=== PATIENT | female | born 1960 | race Caucasian/White ===

== ENCOUNTER 2016-09-08 19:08 | Inpatient (IN) | payer MEDICARE, MEDICAID ==
[~2016-09-08] VITALS: Ht 152.4 cm; Wt 46.6 kg
[~2016-09-08 19:08] MED LIST: AMBIEN 5MG TABLE5 MG PO; AMBIEN10 MG PO; AMITIZA24 MCG PO; ASPIR-LOW81 MG PO; ATIVAN1 MG PO; BRIVIACT75 MG PO; CALCIUM + D 5001 TAB PO; CARBATROL300 MG PO; CARDI-OMEGA1000 MG PO; CEFTIN 250250 MG/TAB PO; CELEXA; CELEXA PO; CEPHALEXIN500 M1 PO; CHANTIX 1MG1 MG PO; CHANTIX START M1 TAB PO; CLINDAGEL 40 ML40 ML TP; CYMBALTA 30MG30 MG PO; DAZIDOX20 MG PO; DESYREL 100MG100 MG PO; DICYCLOMINE HCL10 MG PO; DICYCLOMINE10 MG PO; DILAUDID 2MG TAB2 MG PO; DOXYCYCLINE 10100 MG PO; EFFER-K10 MEQ PO; ELAVIL25 MG PO; ENSURE HIGH PR237 ML PO; FERROUS SU325 MG/TAB PO; FERROUSAL325 MG PO; FLEXERIL 1010 MG/TAB PO; FLEXERIL10 MG PO; GABAPENTIN; GABAPENTIN600 MG PO; GENTLE LAXATIVE10 MG RC; HEPARIN LOCK FLU5 M1 IV; HYDROXYZINE PAM25 MG PO; IBU800 M1 PO; IBUPROFEN400 MG PO; INVANZ INJ1 G/VIAL IV; IPRATROPIUM BROM3 M1 IH; IRON FERROUS S325 MG PO; IRON325 M1 PO; K-DUR20 MEQ PO; K-LOR CON PO; KEPPRA 500MG500 MG PO; KEPPRA1000 MG PO; KEPPRA750 MG PO; KLONOPIN 0.5MG0.5 MG PO; KLOR-CON 1010 MEQ PO; LASIX PO; LASIX20 MG PO; LASIX40 MG PO; LEVBID0.375 MG; LEVSIN0.125 M1 PO; LIDODERM 5% PATC1 EA TD; LINZESS290CAP PO; LUNESTA3 MG PO; MAALOX EXTRA S360 ML PO; MAG-OX 400400 MG PO; MAG-OX 400400 MG/TAB PO; MAGIC MOUTH PO; MAGNESIUM OXIDE PO; MILK OF MA400 MG/51 PO; MIRALAX 17GM PK1 PKT PO; MIRALAX PA17 GM/Dose PO; MOTRIN400 MG PO; MS CONTIN 115 MG/TAB PO; MULTIPLE VITAMI1 CAP PO; MULTIVITAMIN1 TA1 PO; MYLANTA 150 ML150 M1 PO; NEURONTIN800 MG/TAB PO; NICOTINE POLACRI2 MG BC; NORCO 325 MG-51 TAB PO; NORCO 325 MG-7.1 TAB PO; ONDANSETRON4 MG PO; OXY IR5 MG PO; OXYCODONE5 M1 PO; OXYCONTIN 10MG10 MG PO; PAROXETINE20 MG PO; PAXIL40 MG PO; PERCOCET 325 MG1 TA2 PO; PHENERGAN25 MG RC; POLYETHYLE17 GM/DOSE PO; POTASSIUM CHLO10 ME2 PO; POTASSIUM CL 220 MEQ PO; POTASSIUM20 MEQ PO; PRILOSEC 20MG20 MG PO; PROCHLORPERAZINE5 M1 PO; PROZAC20 MG PO; REGLAN 10MG10 MG/TAB PO; RELPAX 40MG TAB40 MG PO; RISPERDAL 0.5M0.5 MG PO; RISPERDAL CON12.5 MG PO; RISPERIDONE0.5 MG PO; ROXICODONE 55 MG/TAB PO; SEE INSTRUCTIONS IT; SEPTRA DS 8001 TAB PO; SEROQUEL 1100 MG/TAB PO; SEROQUEL PO; SEROQUEL XR150 MG PO; STADOL2 MG/ML IV; TEGRETOL 2200 MG/TA1 PO; TEGRETOL X200 MG/TA1 PO; TRAZADONE HYDR100 MG PO; TRAZODONE HCL300 MG PO; TYLENOL 325MG325 MG PO; TYLENOL EXTRA500 M1 PO; ULTRAM50 MG PO; VITAMIN C BUFF500 MG PO; Z-BEC1 TAB PO; ZINC SO4 PO; ZOFRAN 4MG T4 MG/TAB PO; ZOFRAN4 M1 PO; ZOFRAN4 MG PO; ZYPREXA5 MG PO; [UNRECOGNIZED DRUG - REMARK]
[2016-09-08 19:45] LABS: PH 5 (5-8); SQUAMOUS EPITHELIAL 0-2 /hpf; URINE APPEARANCE Clear; URINE BACTERIA None Seen /hpf; URINE BILIRUBIN Negative (NEGATIVE); URINE BLOOD Negative (NEGATIVE); URINE COLOR Yellow; URINE GLUCOSE Negative (NEGATIVE); URINE KETONE Negative (NEGATIVE); URINE RBC 0-2 /hpf; URINE UROBILINOGEN Negative (NEGATIVE)
[2016-09-08 20:39] LABS: BASO % 0.2 % (0.0-2.0); EOS # 0.5 (0.0-0.7); GRAN # 9.6 (1.4-6.5); GRAN % 83.2 % (42.2-75.2); LYMPH # 0.8 (1.2-3.4); LYMPH % 7.3 % (20.0-51.0); MEAN CORPUSCULAR HGB CONC 31 g/dl (33.0-37.0); MEAN PLATELET VOLUME 9.8 fl (7.4-10.4); MONO # 0.6 (0.1-0.6); PLATELET COUNT 303 K/mm3 (130-400); RED BLOOD COUNT 3.11 M/mm3 (4.10-5.30); WHITE BLOOD COUNT 11.6 K/mm3 (4.8-10.8)
[2016-09-08 20:41] LABS: HEMATOCRIT 29.3 % (37.0-47.0); HEMOGLOBIN 9.2 g/dl (12.5-16.0); MEAN CELL VOLUME 94 fl (80.0-100.0); MEAN CORPUSCULAR HEMOGLOBIN 30 pg (27.0-31.0)
[2016-09-08 21:25] LABS: ADJUSTED CALCIUM 9.7 mg/dL (8.4-10.2); ALANINE AMINOTRANSFERASE 46 U/L (9-52); ALBUMIN 1.9 gm/dL (3.5-5.0); ALKALINE PHOSPHATASE 202 U/L (50-136); ANION GAP 11 mmol/L (7-16); BILIRUBIN,TOTAL 0.5 mg/dL (0.0-1.0); BLOOD UREA NITROGEN 12 mg/dL (7-17); CARBON DIOXIDE 19 mmol/L (22-30); CHLORIDE 118 mmol/L (98-107); CREATININE, serum 0.72 mg/dL (0.52-1.25); GLUCOSE 90 mg/dL (74-106); POTASSIUM 4.5 mmol/L (3.4-5.0); SODIUM 147 mmol/L (137-145); TOTAL PROTEIN 5.8 gm/dL (6.4-8.2)
[2016-09-08 22:17] LABS: ARTERIAL BLD GAS O2 SATURATION 95.1 % (92-100); ARTERIAL BLD GAS TCO2 CT 19.4; ARTERIAL BLOOD GAS BASE EXCESS -7.3 (-2-2); ARTERIAL BLOOD GAS HCO3 18.3 meq/L (22-26); ARTERIAL BLOOD GAS PHT 7.31 C (7.35-7.45); ARTERIAL BLOOD GAS PO2 85.7 mmHg (80-100); ARTERIAL BLOOD GAS PO2T 85.7 (80-100); ARTERIAL BLOOD GAS pH 7.31 (7.35-7.45); OXYHEMOGLOBIN 94.3 %
[2016-09-08 22:18] LABS: ALLEN TEST NO; ATS? YES
[2016-09-08 22:49] VITALS: BP 95/65; PULSE 76; TEMP 97.3
[2016-09-09 00:10] VITALS: BP 92/64; PULSE 69; TEMP 97.2
[2016-09-09 01:06] LABS: BASO % 0.2 % (0.0-2.0); EOS # 0.3 (0.0-0.7); EOS % 3.7 % (0-4.0); GRAN # 7.7 (1.4-6.5); LYMPH # 0.9 (1.2-3.4); LYMPH % 10.1 % (20.0-51.0); MEAN CELL VOLUME 93 fl (80.0-100.0); MEAN CORPUSCULAR HGB CONC 33 g/dl (33.0-37.0); MEAN PLATELET VOLUME 9.7 fl (7.4-10.4); MONO # 0.2 (0.1-0.6); MONO % 2.6 % (1.7-9.3); PLATELET COUNT 278 K/mm3 (130-400); RED BLOOD COUNT 3.15 M/mm3 (4.10-5.30); REDCELL DISTRIBUTION WIDTH-CV 18.2 % (11.5-14.5); WHITE BLOOD COUNT 9.2 K/mm3 (4.8-10.8)
[2016-09-09 01:11] LABS: INR 1.2 (0.8-3.0)
[2016-09-09 01:14] LABS: HEMATOCRIT 29.2 % (37.0-47.0); HEMOGLOBIN 9.5 g/dl (12.5-16.0); MEAN CORPUSCULAR HEMOGLOBIN 30 pg (27.0-31.0)
[2016-09-09 01:17] LABS: ADJUSTED CALCIUM 8.7 mg/dL (8.4-10.2); ALANINE AMINOTRANSFERASE 54 U/L (9-52); ALBUMIN 2.1 gm/dL (3.5-5.0); ALKALINE PHOSPHATASE 196 U/L (50-136); ANION GAP 9 mmol/L (7-16); BILIRUBIN,TOTAL 0.6 mg/dL (0.0-1.0); BLOOD UREA NITROGEN 10 mg/dL (7-17); CALCIUM 7.2 mg/dL (8.4-10.2); CARBON DIOXIDE 19 mmol/L (22-30); CHLORIDE 116 mmol/L (98-107); CREATININE, serum 0.64 mg/dL (0.52-1.25); GLUCOSE 86 mg/dL (74-106); SODIUM 144 mmol/L (137-145); TOTAL PROTEIN 6.4 gm/dL (6.4-8.2)
[2016-09-09 01:21] LABS: SALICYLATE < 1.0 mg/dL
[2016-09-09 01:29] LABS: B-TYPE NATRIURETIC PEPTIDE 780 pg/mL (0-125); TROPONIN-I < 0.012 ng/mL (0.000-0.034)
[2016-09-09 04:10] VITALS: BP 102/68; PULSE 61; TEMP 98.6
[2016-09-09 08:00] VITALS: BP 94/66; PULSE 56; TEMP 98
[2016-09-09 12:30] VITALS: BP 99/64; PULSE 60; TEMP 98.7
[2016-09-09 17:15] VITALS: BP 91/54; PULSE 69; TEMP 98.4
[2016-09-09 21:18] VITALS: BP 98/77; PULSE 78; TEMP 98
[2016-09-10 00:58] VITALS: BP 90/57; PULSE 76; TEMP 98
[2016-09-10 05:24] VITALS: BP 97/59; PULSE 76; TEMP 97
[2016-09-10 09:39] VITALS: BP 91/55; PULSE 102; TEMP 97.4
[2016-09-10 10:47] LABS: MAGNESIUM 1.7 mg/dL (1.6-2.3)
[2016-09-10 11:18] LABS: THYROID STIMULATING HORMONE 6.27 uIU/mL (0.465-4.680)
[2016-09-10 11:26] VITALS: BP 96/69; PULSE 76; TEMP 97.4
[2016-09-10 11:52] LABS: THYROXINE (T4)-TOTAL 2.5 ug/dL (5.5-11.0)
[2016-09-10 15:19] VITALS: BP 105/66; PULSE 83; TEMP 97.4
[2016-09-10 19:47] VITALS: BP 102/68; PULSE 75; TEMP 98
[2016-09-11] VITALS (7 sets, daily range): BP systolic 96–121; BP diastolic 57–92; PULSE 88–115; TEMP 97.7–98.7
[2016-09-11 09:08] LABS: MEAN CELL VOLUME 90 fl (80.0-100.0); MEAN CORPUSCULAR HGB CONC 33 g/dl (33.0-37.0); MEAN PLATELET VOLUME 10.3 fl (7.4-10.4); PLATELET COUNT 252 K/mm3 (130-400); RED BLOOD COUNT 3.21 M/mm3 (4.10-5.30); REDCELL DISTRIBUTION WIDTH-CV 17.8 % (11.5-14.5); WHITE BLOOD COUNT 11.3 K/mm3 (4.8-10.8)
[2016-09-11 09:13] LABS: CALCIUM 7.4 mg/dL (8.4-10.2); CREATININE, serum 0.63 mg/dL (0.52-1.25)
[2016-09-11 09:18] LABS: HEMATOCRIT 28.9 % (37.0-47.0); HEMOGLOBIN 9.4 g/dl (12.5-16.0); MEAN CORPUSCULAR HEMOGLOBIN 29 pg (27.0-31.0)
[2016-09-11 09:50] LABS: BAND 20 % (0-10); EOSINOPHIL 1 % (0-4); HYPOCHROMIA 2+; METAMYELOCYTE 1 % (0-0); MYELOCYTE 2 % (0-0); NEUTROPHILS 65 % (42.0-75.2); PLATELET ESTIMATE NORMAL (NORMAL); TOTAL CELLS COUNTED 100
[2016-09-11 09:51] LABS: ADD PATHOLOGY DIFF REVIEW YES
[2016-09-12 04:21] VITALS: BP 97/68; PULSE 69; TEMP 97
[2016-09-12 07:23] LABS: CALCIUM 7.6 mg/dL (8.4-10.2); CREATININE, serum 0.63 mg/dL (0.52-1.25); POTASSIUM 3.6 mmol/L (3.4-5.0)
[2016-09-12 07:29] VITALS: BP 122/73; PULSE 81; TEMP 96.8
[2016-09-12 07:31] LABS: MEAN CELL VOLUME 91 fl (80.0-100.0); MEAN CORPUSCULAR HGB CONC 32 g/dl (33.0-37.0); MEAN PLATELET VOLUME 10.5 fl (7.4-10.4); PLATELET COUNT 236 K/mm3 (130-400); RED BLOOD COUNT 3.02 M/mm3 (4.10-5.30); REDCELL DISTRIBUTION WIDTH-CV 18.1 % (11.5-14.5); WHITE BLOOD COUNT 11.1 K/mm3 (4.8-10.8)
[2016-09-12 07:42] LABS: ADD PATHOLOGY DIFF REVIEW NO; HEMATOCRIT 27.6 % (37.0-47.0); HEMOGLOBIN 8.9 g/dl (12.5-16.0); MEAN CORPUSCULAR HEMOGLOBIN 29 pg (27.0-31.0)
[2016-09-12 08:19] LABS: BAND 20 % (0-10); BASOPHIL 1 % (0-2); EOSINOPHIL 1 % (0-4); METAMYELOCYTE 2 % (0-0); NEUTROPHILS 66 % (42.0-75.2); TOTAL CELLS COUNTED 100
[2016-09-12 08:20] LABS: HYPOCHROMIA 2+; PLATELET ESTIMATE NORMAL (NORMAL); TARGET CELLS 2+
[2016-09-12 08:54] LABS: PATHOLOGY DIFF REVIEW OK
[2016-09-12 12:04] VITALS: BP 103/69; PULSE 83; TEMP 97.8
[2016-09-12 17:09] VITALS: BP 109/66; PULSE 97; TEMP 98.7
[2016-09-12 19:22] VITALS: BP 113/70; PULSE 92; TEMP 98.1
[2016-09-12 23:22] VITALS: BP 116/67; PULSE 94; TEMP 98.1
[2016-09-13] VITALS (7 sets, daily range): BP systolic 31–131; BP diastolic 52–80; PULSE 87–109; TEMP 97.4–98.2
[2016-09-13 06:50] LABS: MEAN CELL VOLUME 90 fl (80.0-100.0); MEAN CORPUSCULAR HGB CONC 32 g/dl (33.0-37.0); MEAN PLATELET VOLUME 10.5 fl (7.4-10.4); PLATELET COUNT 223 K/mm3 (130-400); RED BLOOD COUNT 2.94 M/mm3 (4.10-5.30); WHITE BLOOD COUNT 10.2 K/mm3 (4.8-10.8)
[2016-09-13 07:03] LABS: CALCIUM 7.4 mg/dL (8.4-10.2); CREATININE, serum 0.57 mg/dL (0.52-1.25); POTASSIUM 3.3 mmol/L (3.4-5.0)
[2016-09-13 07:08] LABS: ADD PATHOLOGY DIFF REVIEW NO; HEMATOCRIT 26.4 % (37.0-47.0); HEMOGLOBIN 8.5 g/dl (12.5-16.0); MEAN CORPUSCULAR HEMOGLOBIN 29 pg (27.0-31.0)
[2016-09-13 07:36] LABS: BAND 16 % (0-10); EOSINOPHIL 5 % (0-4); MYELOCYTE 1 % (0-0); NEUTROPHILS 57 % (42.0-75.2); PLATELET ESTIMATE NORMAL (NORMAL); TOTAL CELLS COUNTED 100
[2016-09-14 03:44] VITALS: BP 119/70; PULSE 84; TEMP 98.3
[2016-09-14 07:11] LABS: MEAN CELL VOLUME 92 fl (80.0-100.0); MEAN CORPUSCULAR HGB CONC 32 g/dl (33.0-37.0); MEAN PLATELET VOLUME 10.4 fl (7.4-10.4); PLATELET COUNT 245 K/mm3 (130-400); RED BLOOD COUNT 2.84 M/mm3 (4.10-5.30); REDCELL DISTRIBUTION WIDTH-CV 18.1 % (11.5-14.5); WHITE BLOOD COUNT 6.9 K/mm3 (4.8-10.8)
[2016-09-14 07:20] LABS: CALCIUM 7.3 mg/dL (8.4-10.2); CREATININE, serum 0.58 mg/dL (0.52-1.25); POTASSIUM 3.4 mmol/L (3.4-5.0)
[2016-09-14 07:21] LABS: ADD PATHOLOGY DIFF REVIEW NO; HEMATOCRIT 26.1 % (37.0-47.0); HEMOGLOBIN 8.4 g/dl (12.5-16.0); MEAN CORPUSCULAR HEMOGLOBIN 30 pg (27.0-31.0)
[2016-09-14 07:44] VITALS: BP 118/76; PULSE 82; TEMP 97.8
[2016-09-14 07:49] LABS: BAND 11 % (0-10); EOSINOPHIL 7 % (0-4); NEUTROPHILS 60 % (42.0-75.2); TOTAL CELLS COUNTED 100
[2016-09-14 07:50] LABS: ANISOCYTOSIS 1+; HYPOCHROMIA 1+
[2016-09-14 11:16] VITALS: BP 108/69; PULSE 90; TEMP 98.1
[2016-09-14 12:30] VITALS: BP 126/76; PULSE 86; TEMP 98.1
[2016-09-14 15:06] LABS: .COPPER,S 0.8 mcg/mL (())
[2016-09-14 16:33] VITALS: BP 121/74; PULSE 95; TEMP 97.3
[2016-09-14 20:18] VITALS: BP 115/74; PULSE 102; TEMP 98.1
[2016-09-15 00:37] VITALS: BP 120/78; PULSE 92; TEMP 98
[2016-09-15 04:21] VITALS: BP 127/78; PULSE 92; TEMP 97.6
[2016-09-15 06:53] LABS: MEAN CELL VOLUME 91 fl (80.0-100.0); MEAN CORPUSCULAR HGB CONC 32 g/dl (33.0-37.0); MEAN PLATELET VOLUME 10.2 fl (7.4-10.4); PLATELET COUNT 235 K/mm3 (130-400); RED BLOOD COUNT 2.83 M/mm3 (4.10-5.30); REDCELL DISTRIBUTION WIDTH-CV 17.9 % (11.5-14.5); WHITE BLOOD COUNT 6.1 K/mm3 (4.8-10.8)
[2016-09-15 06:54] LABS: HEMATOCRIT 25.8 % (37.0-47.0); HEMOGLOBIN 8.3 g/dl (12.5-16.0); MEAN CORPUSCULAR HEMOGLOBIN 29 pg (27.0-31.0)
[2016-09-15 06:55] LABS: ADD PATHOLOGY DIFF REVIEW NO
[2016-09-15 07:03] LABS: CALCIUM 7.3 mg/dL (8.4-10.2); CREATININE, serum 0.6 mg/dL (0.52-1.25); POTASSIUM 3.6 mmol/L (3.4-5.0)
[2016-09-15 08:00] VITALS: BP 121/77; PULSE 80; TEMP 98.2
[2016-09-15 08:17] LABS: BAND 1 % (0-10); EOSINOPHIL 6 % (0-4); NEUTROPHILS 66 % (42.0-75.2); TOTAL CELLS COUNTED 100
[2016-09-15 08:18] LABS: PLATELET ESTIMATE NORMAL (NORMAL)
[2016-09-15 11:26] VITALS: BP 113/89; PULSE 86; TEMP 98.5
[2016-09-15 17:04] VITALS: BP 116/70; PULSE 82; TEMP 98.7
[2016-09-15 20:45] VITALS: BP 129/66; PULSE 79; TEMP 98
[2016-09-16] VITALS (7 sets, daily range): BP systolic 101–123; BP diastolic 63–74; PULSE 68–100; TEMP 97.5–98.6
[2016-09-16 09:58] LABS: CALCIUM 7.6 mg/dL (8.4-10.2); CREATININE, serum 0.58 mg/dL (0.52-1.25); POTASSIUM 3.7 mmol/L (3.4-5.0)
[2016-09-16 10:04] LABS: MEAN CELL VOLUME 91 fl (80.0-100.0); MEAN CORPUSCULAR HGB CONC 33 g/dl (33.0-37.0); MEAN PLATELET VOLUME 10.3 fl (7.4-10.4); PLATELET COUNT 229 K/mm3 (130-400); RED BLOOD COUNT 3.01 M/mm3 (4.10-5.30); REDCELL DISTRIBUTION WIDTH-CV 17.6 % (11.5-14.5); WHITE BLOOD COUNT 7.7 K/mm3 (4.8-10.8)
[2016-09-16 10:19] LABS: ADD PATHOLOGY DIFF REVIEW NO; HEMATOCRIT 27.4 % (37.0-47.0); HEMOGLOBIN 8.9 g/dl (12.5-16.0); MEAN CORPUSCULAR HEMOGLOBIN 30 pg (27.0-31.0)
[2016-09-16 12:22] LABS: BASOPHIL 4 % (0-2); EOSINOPHIL 9 % (0-4); NEUTROPHILS 76 % (42.0-75.2); TOTAL CELLS COUNTED 100
[2016-09-16 12:24] LABS: HYPOCHROMIA 1+
[2016-09-16 12:25] LABS: ANISOCYTOSIS 1+; MICROCYTOSIS 1+; TARGET CELLS 1+
[2016-09-16 13:47] LABS: ALBUMIN 2.1 gm/dL (3.5-5.0); BILIRUBIN,DIRECT 0.3 mg/dL (0.0-0.4); BILIRUBIN,TOTAL 0.3 mg/dL (0.0-1.0); TOTAL PROTEIN 6.8 gm/dL (6.4-8.2)
[2016-09-17 04:38] VITALS: BP 108/73; PULSE 73; TEMP 98.1
[2016-09-17 06:50] LABS: MEAN CELL VOLUME 93 fl (80.0-100.0); MEAN CORPUSCULAR HGB CONC 31 g/dl (33.0-37.0); MEAN PLATELET VOLUME 10.5 fl (7.4-10.4); PLATELET COUNT 221 K/mm3 (130-400); RED BLOOD COUNT 2.85 M/mm3 (4.10-5.30); REDCELL DISTRIBUTION WIDTH-CV 17.5 % (11.5-14.5); WHITE BLOOD COUNT 5.9 K/mm3 (4.8-10.8)
[2016-09-17 07:00] LABS: ADD PATHOLOGY DIFF REVIEW NO; CALCIUM 7.5 mg/dL (8.4-10.2); CREATININE, serum 0.65 mg/dL (0.52-1.25); HEMATOCRIT 26.4 % (37.0-47.0); HEMOGLOBIN 8.2 g/dl (12.5-16.0); MEAN CORPUSCULAR HEMOGLOBIN 29 pg (27.0-31.0); POTASSIUM 3.9 mmol/L (3.4-5.0)
[2016-09-17 07:43] LABS: BASOPHIL 1 % (0-2); EOSINOPHIL 12 % (0-4); NEUTROPHILS 65 % (42.0-75.2); TOTAL CELLS COUNTED 100
[2016-09-17 07:46] LABS: ANISOCYTOSIS 2+; HYPOCHROMIA 2+; POLYCHROMASIA 1+; TARGET CELLS 1+
[2016-09-17 08:12] VITALS: BP 98/77; PULSE 77; TEMP 97.8
[2016-09-17 12:17] VITALS: BP 117/71; PULSE 102; TEMP 97.9
[2016-09-17 17:36] VITALS: BP 109/64; PULSE 76; TEMP 97.8
[2016-09-17 20:00] VITALS: BP 104/67; PULSE 81; TEMP 98
[2016-09-17 23:25] VITALS: BP 111/65; PULSE 88; TEMP 98.1
[2016-09-18 03:21] VITALS: BP 125/74; PULSE 71; TEMP 98.5
[2016-09-18 06:30] LABS: MEAN CELL VOLUME 90 fl (80.0-100.0); MEAN CORPUSCULAR HGB CONC 32 g/dl (33.0-37.0); MEAN PLATELET VOLUME 10.5 fl (7.4-10.4); PLATELET COUNT 194 K/mm3 (130-400); RED BLOOD COUNT 2.72 M/mm3 (4.10-5.30); REDCELL DISTRIBUTION WIDTH-CV 17.3 % (11.5-14.5); WHITE BLOOD COUNT 5.7 K/mm3 (4.8-10.8)
[2016-09-18 06:35] LABS: ADD PATHOLOGY DIFF REVIEW NO; HEMATOCRIT 24.6 % (37.0-47.0); HEMOGLOBIN 7.9 g/dl (12.5-16.0); MEAN CORPUSCULAR HEMOGLOBIN 29 pg (27.0-31.0)
[2016-09-18 06:39] LABS: CALCIUM 7.2 mg/dL (8.4-10.2); CREATININE, serum 0.6 mg/dL (0.52-1.25); POTASSIUM 3.3 mmol/L (3.4-5.0)
[2016-09-18 07:53] LABS: BAND 2 % (0-10); EOSINOPHIL 13 % (0-4); NEUTROPHILS 57 % (42.0-75.2); PLATELET ESTIMATE NORMAL (NORMAL); TOTAL CELLS COUNTED 100
[2016-09-18 08:06] VITALS: BP 106/69; PULSE 67; TEMP 97.8
[2016-09-18 09:50] LABS: MAGNESIUM 1.6 mg/dL (1.6-2.3)
[2016-09-18 12:06] VITALS: BP 114/74; PULSE 80; TEMP 98.7
[2016-09-18] MEDS ORDERED: CLEOCIN HCL300 MG PO (14:55)
[2016-09-18] MEDS ORDERED: LEVAQUIN 5500 MG/TA1 PO (14:56)
[2016-09-18] MEDS ORDERED: NEURONTIN400 MG/CAP PO (14:58)
[2016-09-18] MEDS ORDERED: CYMBALTA 60MG60 MG PO (14:59)
[2016-09-18 16:00] VITALS: BP 127/90; PULSE 77; TEMP 97.7
[2016-09-18 19:32] VITALS: BP 122/75; PULSE 69; TEMP 97.9
[2016-09-18 23:47] VITALS: BP 115/48; PULSE 94; TEMP 97.8
[2016-09-19 03:48] VITALS: BP 113/64; PULSE 77; TEMP 97.4
[2016-09-19 07:42] LABS: MEAN CELL VOLUME 91 fl (80.0-100.0); MEAN CORPUSCULAR HGB CONC 32 g/dl (33.0-37.0); MEAN PLATELET VOLUME 10.9 fl (7.4-10.4); PLATELET COUNT 203 K/mm3 (130-400); RED BLOOD COUNT 2.75 M/mm3 (4.10-5.30); REDCELL DISTRIBUTION WIDTH-CV 17.2 % (11.5-14.5); WHITE BLOOD COUNT 4.8 K/mm3 (4.8-10.8)
[2016-09-19 07:47] LABS: ADD PATHOLOGY DIFF REVIEW NO; HEMOGLOBIN 7.9 g/dl (12.5-16.0); MEAN CORPUSCULAR HEMOGLOBIN 29 pg (27.0-31.0)
[2016-09-19 07:48] LABS: CALCIUM 7.4 mg/dL (8.4-10.2); CREATININE, serum 0.59 mg/dL (0.52-1.25); POTASSIUM 3.3 mmol/L (3.4-5.0)
[2016-09-19 08:13] LABS: BAND 9 % (0-10); BASOPHIL 1 % (0-2); EOSINOPHIL 15 % (0-4); METAMYELOCYTE 1 % (0-0); NEUTROPHILS 44 % (42.0-75.2); PLATELET ESTIMATE NORMAL (NORMAL); TOTAL CELLS COUNTED 100
[2016-09-19 08:39] VITALS: BP 123/72; PULSE 77; TEMP 97.8
[2016-09-19 12:23] VITALS: BP 119/70; PULSE 90; TEMP 97.8
[2016-09-19 16:02] VITALS: BP 109/59; PULSE 77; TEMP 97.8
[2016-10-03 08:28] LABS: MMA QUANT 0.98 (())
== END 2016-09-19 18:30 | DRG 917 ==
LOC: COL.ER 19:08 → ICU 19:22 → MEDICAL 09-09 10:55 → ICU 09-09 10:55 → MEDICAL 09-09 15:50
PROVIDERS: Emergency Medicine; Family Medicine; Internal Medicine; Nurse Practitioner Family; Physician Assistant; Psychiatry & Neurology Neurology
DX: T40.2X1A Poisoning by other opioids, accidental (unintentional), initial encounter (principal); G92 Toxic encephalopathy; J85.2 Abscess of lung without pneumonia; E43 Unspecified severe protein-calorie malnutrition; Z68.1 Body mass index [BMI] 19.9 or less, adult; E87.2 Acidosis; F05 Delirium due to known physiological condition; T43.591A Poisoning by other antipsychotics and neuroleptics, accidental (unintentional), initial encounter; E87.6 Hypokalemia; G40.909 Epilepsy, unspecified, not intractable, without status epilepticus; F31.9 Bipolar disorder, unspecified; G89.29 Other chronic pain; F17.210 Nicotine dependence, cigarettes, uncomplicated
CPT/HCPCS: 90791-AI; 99222-AI; 99231-AI; 99232-AI; 99239; A4315; G0378; G8978-GP; G8979-GP; J1644; J1650; J2405; J2543; J3411; J3475; J3480; J7030; J7050; Q9967

== ENCOUNTER 2016-09-19 06:45 | Inpatient (IN) | payer MEDICARE, MEDICAID ==
[~2016-09-19] VITALS: Ht 160 cm; Wt 41.0 kg
[~2016-09-19 06:45] MED LIST changes: +CLEOCIN HCL300 MG PO; +CYMBALTA 60MG60 MG PO; +LEVAQUIN 5500 MG/TA1 PO; +NEURONTIN400 MG/CAP PO
[2016-09-19 21:43] VITALS: BP 120/68; PULSE 80; TEMP 97.6
[2016-09-20 04:48] VITALS: BP 113/67; PULSE 89; TEMP 98.2
[2016-09-20 04:54] VITALS: BP 120/63; PULSE 50; TEMP 98.2
[2016-09-20 17:26] VITALS: BP 113/65; PULSE 72; TEMP 96.8
[2016-09-21 02:15] VITALS: BP 127/75; PULSE 90; TEMP 97.9
[2016-09-21 09:56] LABS: CALCIUM 7.4 mg/dL (8.4-10.2); CREATININE, serum 0.61 mg/dL (0.52-1.25); MAGNESIUM 1.6 mg/dL (1.6-2.3); POTASSIUM 3.9 mmol/L (3.4-5.0)
[2016-09-21 18:51] VITALS: BP 106/57; PULSE 70; TEMP 97.7
[2016-09-22 04:57] VITALS: BP 125/79; PULSE 67; TEMP 98
[2016-09-22 18:34] VITALS: BP 109/76; PULSE 76; TEMP 98
[2016-09-23 05:12] VITALS: BP 115/67; PULSE 72; TEMP 98
[2016-09-23 16:28] VITALS: BP 107/63; PULSE 77; TEMP 98
[2016-09-24 06:30] VITALS: BP 115/68; PULSE 62; TEMP 97.4
[2016-09-24 16:49] VITALS: BP 106/72; PULSE 70; TEMP 97.9
[2016-09-25 06:00] VITALS: BP 107/59; PULSE 69; TEMP 97.3
[2016-09-25 07:44] LABS: CALCIUM 7.5 mg/dL (8.4-10.2); CREATININE, serum 0.66 mg/dL (0.52-1.25); MAGNESIUM 1.6 mg/dL (1.6-2.3); POTASSIUM 3.9 mmol/L (3.4-5.0)
[2016-09-25] MEDS ORDERED: CLEOCIN HCL300 MG PO (11:08)
[2016-09-25] MEDS ORDERED: LEVAQUIN 5500 MG/TA1 PO (11:08)
[2016-09-25] MEDS ORDERED: ZOFRAN 4MG T4 MG/TAB PO (11:09)
[2016-09-25] MEDS ORDERED: PROAIR HFA0.09 MG/AC IH (11:09)
[2016-09-25] MEDS ORDERED: KLOR-CON20 MEQ PO (11:12)
== END 2016-09-25 13:35 | disposition home health service (06) | DRG 947 ==
PROVIDERS: Internal Medicine
DX: R53.81 Other malaise (principal); G93.41 Metabolic encephalopathy; J85.2 Abscess of lung without pneumonia; E44.0 Moderate protein-calorie malnutrition; Z68.1 Body mass index [BMI] 19.9 or less, adult; F31.9 Bipolar disorder, unspecified; G89.29 Other chronic pain; E87.6 Hypokalemia; I48.0 Paroxysmal atrial fibrillation
CPT/HCPCS: 99222-AI; 99232-AI; 99239; J1644; J1650; J2212; J2405

== ENCOUNTER → 2016-12-18 | Outpatient (CLI) | payer MEDICARE, MEDICAID ==
[~2016-12-18] MED LIST changes: +KLOR-CON20 MEQ PO; +PROAIR HFA0.09 MG/AC IH
== END ==
LOC: BHSO 15:26
DX: F31.74 Bipolar disorder, in full remission, most recent episode manic (principal)

== ENCOUNTER 2017-06-19 12:52 | Outpatient (CLI) | payer MEDICARE, MEDICAID ==
[~2017-06-19] VITALS: Ht 160 cm; Wt 51.8 kg
[2017-06-19 13:05] VITALS: BP 109/65; PULSE 69; TEMP 97.7
[2017-06-19] MEDS ORDERED: IPRATROPIUM BROM3 M1 IH (13:20)
[2017-06-19] MEDS ORDERED: BRIVIACT75 MG PO (13:21)
[2017-06-19] MEDS ORDERED: TEGRETOL 2200 MG/TA1 PO (13:21)
[2017-06-19] MEDS ORDERED: VITAMIN B11000 MCG/M IM (13:22)
[2017-06-19] MEDS ORDERED: CLEOCIN HCL300 MG PO (13:22)
[2017-06-19] MEDS ORDERED: FLEXERIL 1010 MG/TAB PO (13:22)
[2017-06-19] MEDS ORDERED: CYMBALTA 30MG30 MG PO (13:23)
[2017-06-19] MEDS ORDERED: LUNESTA3 MG PO (13:23)
[2017-06-19] MEDS ORDERED: DOXYCYCLINE 10100 MG PO (13:23)
[2017-06-19] MEDS ORDERED: NEURONTIN800 MG/TAB PO (13:24)
[2017-06-19] MEDS ORDERED: LINZESS290CAP PO (13:25)
[2017-06-19] MEDS ORDERED: LEVSIN0.125 M1 PO (13:25)
[2017-06-19] MEDS ORDERED: PRILOSEC 20MG20 MG PO (13:26)
[2017-06-19] MEDS ORDERED: MULTI VITAMINS1 TAB PO (13:26)
[2017-06-19] MEDS ORDERED: MOVANTIK25 MG PO (13:26)
[2017-06-19] MEDS ORDERED: ZOFRAN 4MG T4 MG/TAB PO (13:27)
[2017-06-19] MEDS ORDERED: DAZIDOX10 MG PO (13:27)
[2017-06-19] MEDS ORDERED: LEADER CLE17 GM/Dose PO (13:28)
[2017-06-19] MEDS ORDERED: MICRO-K 10 EXT10 MEQ PO (13:28)
[2017-06-19] MEDS ORDERED: RISPERDAL 0.5M0.5 MG PO (13:29)
[2017-06-19] MEDS ORDERED: RELPAX 40MG TAB40 MG PO (13:29)
[2017-06-19] MEDS ORDERED: GENTLE LAXATIVE10 MG RC (13:30)
[2017-06-19] MEDS ORDERED: VENTOLIN0.09 MG IH (13:30)
[2017-06-19] MEDS ORDERED: EVOCLIN50GM TOP (13:30)
== END 2017-06-19 13:32 | disposition home or self-care (01) ==
LOC: EUO 12:52
DX: G43.119 Migraine with aura, intractable, without status migrainosus (principal)
CPT/HCPCS: J0595

== ENCOUNTER → 2017-07-06 | Outpatient (CLI) | payer MEDICARE, MEDICAID ==
[~2017-07-06] MED LIST changes: +DAZIDOX10 MG PO; +EVOCLIN50GM TOP; +LEADER CLE17 GM/Dose PO; +MICRO-K 10 EXT10 MEQ PO; +MOVANTIK25 MG PO; +MULTI VITAMINS1 TAB PO; +VENTOLIN0.09 MG IH; +VITAMIN B11000 MCG/M IM
== END ==
LOC: BHSO 09:59
DX: F31.73 Bipolar disorder, in partial remission, most recent episode manic (principal)

== ENCOUNTER 2017-09-12 16:06 | Emergency (ER) | payer MEDICARE, MEDICAID ==
[~2017-09-12] VITALS: Ht 160 cm; Wt 51.8 kg
[2017-09-12 16:07] VITALS: BP 130/63; TEMP 98.5
[2017-09-12 17:10] VITALS: PULSE 78
== END 2017-09-12 17:11 | disposition home or self-care (01) ==
LOC: COL.ER 16:06
DX: G43.909 Migraine, unspecified, not intractable, without status migrainosus (principal); F31.9 Bipolar disorder, unspecified; G40.909 Epilepsy, unspecified, not intractable, without status epilepticus; F17.210 Nicotine dependence, cigarettes, uncomplicated; Z90.49 Acquired absence of other specified parts of digestive tract; Z90.89 Acquired absence of other organs; Z90.710 Acquired absence of both cervix and uterus
CPT/HCPCS: J0595; J2405

== ENCOUNTER → 2017-10-16 | Outpatient (CLI) | payer MEDICARE, MEDICAID | LOC: BHSO 13:28 | DX: F41.1 Generalized anxiety disorder (principal) | CPT/HCPCS: G0463 ==

== ENCOUNTER 2017-11-08 11:28 | Emergency (ER) | payer MEDICARE, MEDICAID ==
[~2017-11-08] VITALS: Ht 160 cm; Wt 51.8 kg
[2017-11-08 11:30] VITALS: BP 122/76; TEMP 96.8
[2017-11-08 11:55] LABS: COLLECTION METHOD CLEAN CATCH
[2017-11-08 12:02] LABS: MUCOUS Present /lpf; PH 6 (5-8); SQUAMOUS EPITHELIAL 0-2 /hpf; URINE APPEARANCE Clear; URINE BACTERIA Rare /hpf; URINE BILIRUBIN Negative (NEGATIVE); URINE BLOOD Negative (NEGATIVE); URINE COLOR Yellow; URINE GLUCOSE Negative (NEGATIVE); URINE KETONE Negative (NEGATIVE); URINE LEUKOCYTE ESTERASE Negative (NEGATIVE); URINE NITRATE Negative (NEGATIVE); URINE PROTEIN(semi-quant) Negative (NEGATIVE); URINE RBC 0-2 /hpf; URINE UROBILINOGEN Negative (NEGATIVE)
[2017-11-08] MEDS ORDERED: FLEXERIL 1010 MG/TAB PO (12:57)
[2017-11-08 13:21] VITALS: PULSE 92
== END 2017-11-08 13:22 | disposition home or self-care (01) ==
LOC: COL.ER 11:28
PROVIDERS: Physician Assistant
DX: S39.011A Strain of muscle, fascia and tendon of abdomen, initial encounter (principal); S79.911A Unspecified injury of right hip, initial encounter; G43.909 Migraine, unspecified, not intractable, without status migrainosus; F17.210 Nicotine dependence, cigarettes, uncomplicated; W00.0XXA Fall on same level due to ice and snow, initial encounter

== ENCOUNTER → 2017-12-24 | Outpatient (CLI) | payer MEDICARE, MEDICAID | LOC: BHSO 10:03 | DX: F33.1 Major depressive disorder, recurrent, moderate (principal) | CPT/HCPCS: G0463 ==

== ENCOUNTER 2018-02-18 16:18 | Outpatient (RCR) | payer MEDICARE, MEDICAID ==
[~2018-02-18] VITALS: Ht 160 cm; Wt 50.3 kg
[2018-02-18 16:26] VITALS: PULSE 81; TEMP 98.2
== END 2018-02-18 18:00 | disposition home or self-care (01) ==
LOC: EUO 16:18
DX: G43.909 Migraine, unspecified, not intractable, without status migrainosus (principal)
CPT/HCPCS: J0595

== ENCOUNTER → 2018-02-21 | Outpatient (CLI) | payer MEDICARE, MEDICAID | LOC: BHSO 14:07 | DX: F33.41 Major depressive disorder, recurrent, in partial remission (principal) | CPT/HCPCS: G0463 ==

== ENCOUNTER 2018-02-28 13:23 | Emergency (ER) | payer MEDICARE, MEDICAID ==
[~2018-02-28] VITALS: Ht 160 cm; Wt 49.1 kg
[2018-02-28 13:26] VITALS: BP 116/63; PULSE 85; TEMP 98
[2018-02-28 14:05] LABS: BASO % 0.8 % (0.0-2.0); EOS # 0.1 (0.0-0.7); EOS % 2.7 % (0-4.0); GRAN # 2.9 (1.4-6.5); GRAN % 55.7 % (42.2-75.2); HEMATOCRIT 37.6 % (37.0-47.0); LYMPH # 1.8 (1.2-3.4); LYMPH % 33.5 % (20.0-51.0); MEAN CELL VOLUME 102 fl (80.0-100.0); MEAN CORPUSCULAR HEMOGLOBIN 33 pg (27.0-31.0); MEAN CORPUSCULAR HGB CONC 32 g/dl (33.0-37.0); MEAN PLATELET VOLUME 8.8 fl (7.4-10.4); MONO # 0.4 (0.1-0.6); MONO % 7.1 % (1.7-9.3); PLATELET COUNT 279 K/mm3 (130-400); RED BLOOD COUNT 3.69 M/mm3 (4.10-5.30)
[2018-02-28 14:16] LABS: ALBUMIN 3.3 gm/dL (3.5-5.0); BILIRUBIN,TOTAL 0.2 mg/dL (0.0-1.0); CALCIUM 7.6 mg/dL (8.4-10.2); CREATININE, serum 0.61 mg/dL (0.52-1.25); TOTAL PROTEIN 6.6 gm/dL (6.4-8.2)
== END 2018-02-28 15:03 | disposition home or self-care (01) ==
LOC: COL.ER 13:23
PROVIDERS: Family Medicine
DX: S02.2XXA Fracture of nasal bones, initial encounter for closed fracture (principal); G40.909 Epilepsy, unspecified, not intractable, without status epilepticus; G43.909 Migraine, unspecified, not intractable, without status migrainosus; Z91.14 Patient's other noncompliance with medication regimen; W19.XXXA Unspecified fall, initial encounter; W22.8XXA Striking against or struck by other objects, initial encounter

== ENCOUNTER → 2018-04-05 | Outpatient (CLI) | payer MEDICARE, MEDICAID | LOC: MC.RAD 04-02 13:40 | DX: Z12.31 Encounter for screening mammogram for malignant neoplasm of breast (principal) ==

== ENCOUNTER → 2018-04-08 | Outpatient (CLI) | payer MEDICARE, MEDICAID | LOC: COL.VAS 04-05 08:00 | DX: I36.1 Nonrheumatic tricuspid (valve) insufficiency (principal) ==

== ENCOUNTER → 2018-05-06 | Outpatient (CLI) | payer MEDICARE, MEDICAID | LOC: COL.PUL 12:40 | DX: R06.02 Shortness of breath (principal) | CPT/HCPCS: J7674 ==

== ENCOUNTER → 2018-05-23 | Outpatient (CLI) | payer MEDICARE, MEDICAID ==
[~2018-05-23] MED LIST changes: +MOTRIN 800800 MG/TAB PO
== END ==
LOC: BHSO 14:48
DX: F41.1 Generalized anxiety disorder (principal)
CPT/HCPCS: G0463

== ENCOUNTER → 2018-08-30 | Outpatient (CLI) | payer MEDICARE, MEDICAID | LOC: BHSO 10:51 | DX: F06.32 Mood disorder due to known physiological condition with major depressive-like episode (principal) | CPT/HCPCS: G0463 ==

== ENCOUNTER 2018-09-02 13:44 | Emergency (ER) | payer MEDICARE, MEDICAID ==
[~2018-09-02] VITALS: Ht 160 cm; Wt 47.7 kg
[2018-09-02 15:38] VITALS: BP 105/83; PULSE 83; TEMP 98.3
== END 2018-09-02 15:39 | disposition home or self-care (01) ==
LOC: COL.ER 13:44
DX: G43.909 Migraine, unspecified, not intractable, without status migrainosus (principal); Z90.49 Acquired absence of other specified parts of digestive tract
CPT/HCPCS: J1200; J1885; J2765

== ENCOUNTER → 2018-10-14 | Outpatient (CLI) | payer MEDICARE, MEDICAID | LOC: COL.RAD 08:53 | DX: R74.8 Abnormal levels of other serum enzymes (principal); R79.89 Other specified abnormal findings of blood chemistry | CPT/HCPCS: A9503 ==

== ENCOUNTER → 2018-10-31 | Outpatient (CLI) | payer MEDICARE, MEDICAID | LOC: BHSO 14:34 | DX: F33.42 Major depressive disorder, recurrent, in full remission (principal) ==

== ENCOUNTER → 2019-01-24 | Outpatient (CLI) | payer MEDICARE, MEDICAID | LOC: BHSO 14:59 | DX: F33.1 Major depressive disorder, recurrent, moderate (principal) | CPT/HCPCS: G0463 ==

== ENCOUNTER → 2019-04-29 | Outpatient (CLI) | payer MEDICARE, MEDICAID | LOC: BHSO 14:24 | DX: F41.1 Generalized anxiety disorder (principal) | CPT/HCPCS: G0463 ==

== ENCOUNTER → 2019-07-29 | Outpatient (CLI) | payer MEDICARE, MEDICAID | LOC: BHSO 14:32 | DX: F33.41 Major depressive disorder, recurrent, in partial remission (principal) | CPT/HCPCS: G0463 ==

== ENCOUNTER 2019-08-20 14:42 | Emergency (ER) | payer MEDICARE, MEDICAID ==
[~2019-08-20] VITALS: Ht 160 cm; Wt 38.6 kg
[2019-08-20 14:38] VITALS: TEMP 95.5
[2019-08-20 15:21] LABS: PROTHROMBIN TIME 11.3 SECONDS (9.7-12.8)
[2019-08-20 15:22] LABS: BASO % 0.4 % (0.0-2.0); EOS # 0.2 (0.0-0.7); EOS % 2.4 % (0-4.0); GRAN # 4.9 (1.4-6.5); GRAN % 62.8 % (42.2-75.2); HEMOGLOBIN 14.7 g/dl (12.5-16.0); LYMPH # 2.3 (1.2-3.4); MEAN CELL VOLUME 95 fl (80.0-100.0); MEAN CORPUSCULAR HEMOGLOBIN 31 pg (27.0-31.0); MEAN CORPUSCULAR HGB CONC 33 g/dl (33.0-37.0); MEAN PLATELET VOLUME 10.3 fl (7.4-10.4); MONO # 0.4 (0.1-0.6); MONO % 5.3 % (1.7-9.3); PLATELET COUNT 249 K/mm3 (130-400); RED BLOOD COUNT 4.76 M/mm3 (4.10-5.30); REDCELL DISTRIBUTION WIDTH-CV 15.7 % (11.5-14.5)
[2019-08-20 15:26] LABS: BLOOD UREA NITROGEN 23 mg/dL (7-17); CARBON DIOXIDE 24 mmol/L (22-30); CHLORIDE 109 mmol/L (98-107); CREATININE, serum 1.25 (0.52-1.25); GLUCOSE 83 mg/dL (74-106); POTASSIUM 3.2 mmol/L (3.4-5.0); SODIUM 141 mmol/L (137-145)
[2019-08-20 15:27] LABS: ALANINE AMINOTRANSFERASE 22 U/L (9-52); ALBUMIN 4.1 gm/dL (3.5-5.0); ALKALINE PHOSPHATASE 275 U/L (50-136); ANION GAP 7 mmol/L (7-16); AST,SGOT 42 U/L (15-37); BILIRUBIN,TOTAL 0.4 mg/dL (0.0-1.0); CALCIUM 8.5 mg/dL (8.4-10.2); TOTAL PROTEIN 7.4 gm/dL (6.4-8.2)
[2019-08-20 15:29] LABS: ALCOHOL(ethanol),MEDICAL < 10 mg/dL; C-REACTIVE PROTEIN < 0.5 mg/dL (0.0-0.9)
[2019-08-20 18:25] LABS: COLLECTION METHOD CLEAN CATCH
[2019-08-20 18:33] LABS: MUCOUS Present /lpf; PH 7 (5-8); URINE APPEARANCE Cloudy; URINE BACTERIA Occasional /hpf; URINE BILIRUBIN Negative (NEGATIVE); URINE BLOOD 1+ (NEGATIVE); URINE COLOR Yellow; URINE GLUCOSE Negative (NEGATIVE); URINE KETONE Negative (NEGATIVE); URINE LEUKOCYTE ESTERASE 3+ (NEGATIVE); URINE NITRATE Positive (NEGATIVE); URINE PROTEIN(semi-quant) 1+ (NEGATIVE); URINE RBC 0-2 /hpf; URINE UROBILINOGEN Negative (NEGATIVE)
[2019-08-20 18:38] LABS: TRICYCLIC ANTIDEPRESS URINE POSITIVE
[2019-08-20] MEDS ORDERED: OMNICEF 300MG300 MG PO (19:10)
[2019-08-20 20:00] VITALS: BP 93/61; PULSE 51
[2019-08-22] MEDS ORDERED: BACTRIM DS 8001 TAB PO (16:03)
== END 2019-08-20 20:25 | disposition home or self-care (01) ==
LOC: COL.ER 14:42
PROVIDERS: Family Medicine
DX: N39.0 Urinary tract infection, site not specified (principal); T50.905A Adverse effect of unspecified drugs, medicaments and biological substances, initial encounter; F32.9 Major depressive disorder, single episode, unspecified; G89.29 Other chronic pain; F17.210 Nicotine dependence, cigarettes, uncomplicated
CPT/HCPCS: J0696; J7030

== ENCOUNTER → 2019-10-01 | Outpatient (CLI) | payer MEDICARE, MEDICAID ==
[~2019-10-01] MED LIST changes: +BACTRIM DS 8001 TAB PO; +CRUTCHES MC; +OMNICEF 300MG300 MG PO
== END ==
LOC: BHSO 13:53
DX: F33.41 Major depressive disorder, recurrent, in partial remission (principal)
CPT/HCPCS: G0463

== ENCOUNTER 2019-10-16 22:14 | Emergency (ER) | payer MEDICARE, MEDICAID ==
[~2019-10-16] VITALS: Ht 160 cm; Wt 54.5 kg
[~2019-10-16 22:14] MED LIST changes: -CRUTCHES MC
[2019-10-16 22:22] VITALS: TEMP 97.4
[2019-10-16 22:39] LABS: BASO % 0.4 % (0.0-2.0); EOS % 0.7 % (0-4.0); GRAN # 3.1 (1.4-6.5); GRAN % 54.7 % (42.2-75.2); HEMATOCRIT 38.5 % (37.0-47.0); HEMOGLOBIN 12.4 g/dl (12.5-16.0); LYMPH % 35.2 % (20.0-51.0); MEAN CELL VOLUME 96 fl (80.0-100.0); MEAN CORPUSCULAR HEMOGLOBIN 31 pg (27.0-31.0); MEAN CORPUSCULAR HGB CONC 32 g/dl (33.0-37.0); MEAN PLATELET VOLUME 10.4 fl (7.4-10.4); MONO # 0.5 (0.1-0.6); MONO % 8.8 % (1.7-9.3); PLATELET COUNT 177 K/mm3 (130-400); REDCELL DISTRIBUTION WIDTH-CV 15.2 % (11.5-14.5)
[2019-10-16 22:47] LABS: ALANINE AMINOTRANSFERASE 18 U/L (9-52); ALBUMIN 3.7 gm/dL (3.5-5.0); ALKALINE PHOSPHATASE 207 U/L (50-136); ANION GAP 7 mmol/L (7-16); AST,SGOT 23 U/L (15-37); BILIRUBIN,TOTAL 0.7 mg/dL (0.0-1.0); BLOOD UREA NITROGEN 15 mg/dL (7-17); CALCIUM 7.7 mg/dL (8.4-10.2); CARBON DIOXIDE 20 mmol/L (22-30); CHLORIDE 114 mmol/L (98-107); CREATINE KINASE 75 U/L (30-135); CREATININE, serum 0.67 (0.52-1.25); GLUCOSE 86 mg/dL (74-106); LIPASE 18 U/L (23-300); SODIUM 141 mmol/L (137-145); TOTAL PROTEIN 6.6 gm/dL (6.4-8.2)
[2019-10-16 22:59] LABS: ALCOHOL(ethanol),MEDICAL < 10 mg/dL; TROPONIN-I < 0.012 ng/mL (0.000-0.035)
[2019-10-16 23:02] LABS: PROLACTIN 21.1 ng/mL (3.0-18.6)
[2019-10-16 23:58] LABS: COLLECTION METHOD CLEAN CATCH
[2019-10-17 00:09] LABS: MUCOUS Present /lpf; PH 6 (5-8); SQUAMOUS EPITHELIAL 0-2 /hpf; URINE APPEARANCE Clear; URINE BACTERIA None Seen /hpf; URINE BILIRUBIN Negative (NEGATIVE); URINE BLOOD Negative (NEGATIVE); URINE COLOR Yellow; URINE GLUCOSE Negative (NEGATIVE); URINE KETONE 1+ (NEGATIVE); URINE LEUKOCYTE ESTERASE Trace (NEGATIVE); URINE NITRATE Negative (NEGATIVE); URINE PROTEIN(semi-quant) Negative (NEGATIVE); URINE RBC 0-2 /hpf; URINE UROBILINOGEN Negative (NEGATIVE)
[2019-10-17 00:32] LABS: TRICYCLIC ANTIDEPRESS URINE NEGATIVE
[2019-10-17 03:05] VITALS: BP 132/85; PULSE 48
== END 2019-10-17 03:10 | disposition home or self-care (01) ==
LOC: COL.ER 22:14
PROVIDERS: Emergency Medicine
DX: R00.1 Bradycardia, unspecified (principal); G40.89 Other seizures; I10 Essential (primary) hypertension; G43.909 Migraine, unspecified, not intractable, without status migrainosus; F31.9 Bipolar disorder, unspecified; Z90.49 Acquired absence of other specified parts of digestive tract; Z90.710 Acquired absence of both cervix and uterus; Z90.89 Acquired absence of other organs
CPT/HCPCS: J0610; J7030

== ENCOUNTER 2019-10-31 15:48 | Emergency (ER) | payer MEDICARE, MEDICAID ==
[~2019-10-31] VITALS: Ht 160 cm; Wt 44.5 kg
[2019-10-31 15:59] VITALS: BP 108/55; TEMP 98.1
[2019-10-31] MEDS ORDERED: CRUTCHES MC (18:15)
[2019-10-31 19:01] VITALS: PULSE 75
== END 2019-10-31 18:50 | disposition home or self-care (01) ==
LOC: COL.ER 15:48
DX: S02.2XXA Fracture of nasal bones, initial encounter for closed fracture (principal); S93.402A Sprain of unspecified ligament of left ankle, initial encounter; G40.909 Epilepsy, unspecified, not intractable, without status epilepticus; W01.0XXA Fall on same level from slipping, tripping and stumbling without subsequent striking against object, initial encounter; Y92.009 Unspecified place in unspecified non-institutional (private) residence as the place of occurrence of the external cause